=== PATIENT | female | born 1970 | race Caucasian/White ===

== ENCOUNTER 2023-07-23 16:17 | Outpatient (CLI) | payer MEDICAID | END 2023-07-23 23:59 | disposition home or self-care (01) | LOC: RAD 16:17 | PROVIDERS: ATTEND Family Medicine | DX: S92.812A Other fracture of left foot, initial encounter for closed fracture (principal); S97.82XA Crushing injury of left foot, initial encounter; M25.475 Effusion, left foot; M77.32 Calcaneal spur, left foot; X58.XXXA Exposure to other specified factors, initial encounter; Y93.89 Activity, other specified; Y92.89 Other specified places as the place of occurrence of the external cause; Y99.8 Other external cause status | CPT/HCPCS: 73630 ==